=== PATIENT | female | born 1965 | race Caucasian/White ===

== ENCOUNTER 2017-04-08 07:33 | Emergency (ER) | payer OTHER ==
[~2017-04-08] VITALS: Ht 160 cm; Wt 86.0 kg
[~2017-04-08 07:33] MED LIST: ASPIR 8181 M1 PO; ATARAX,VISTARIL25 MG PO; CELEXA40 MG PO; CLINDAMYCIN HC300 MG PO; GLUCOPHAGE500 MG PO; HYDROCODON-ACE1 EAC7 PO; LEXAPRO10 MG PO; LOPRESSOR25 MG PO; MOTRIN600 MG PO; NORCO 7.5/321 TABLET PO; PLAVIX75 MG PO; PREDNISONE10 M1 PO; PROZAC10 M1 PO; PROZAC10 MG; TRAMADOL HCL50 MG PO; VALIUM5 MG PO; WELLBUTRIN SR150 MG PO; WELLBUTRIN XL300 MG PO
[2017-04-08] MEDS ORDERED: ANTIVERT25 MG PO (08:22)
[2017-04-08] MEDS ORDERED: ZOFRAN ODT4 MG PO (08:23)
[2017-04-08 08:55] VITALS: BP 140/82
== END 2017-04-08 08:55 | disposition home or self-care (01) ==
LOC: EME 07:33
DX: R42 Dizziness and giddiness (principal); R11.0 Nausea; I25.2 Old myocardial infarction; F17.200 Nicotine dependence, unspecified, uncomplicated; F32.9 Major depressive disorder, single episode, unspecified; J45.909 Unspecified asthma, uncomplicated; Z95.5 Presence of coronary angioplasty implant and graft
CPT/HCPCS: 99281; 99283